=== PATIENT | male | born 1950 | race Two or more races ===

== ENCOUNTER → 2025-02-12 | Outpatient (CLI) | payer MEDICARE, SELFPAY ==
--- NOTE | 2025-02-12 12:30 | XR_ITS ---
EXAMINATION: PET/CT FUSION SKULL TO THIGH EXAM DATE AND TIME: February 12, 2025, 1324 hours, comparison CT pelvis October 16, 2021, nuclear medicine bone scan 10/30/2021 INDICATIONS: Diagnosis malignant neoplasm of prostate, post treatment, restaging CTDI:vol (mGy) 7.53 DLP: (mGycm) 688.04 PROCEDURE: 15.5 mCi FDG was administered intravenously To allow for distribution and uptake of radiotracer, the patient was allowed to rest quietly in a shielded room. Imaging was performed on an integrated 16-slice PET/CT scanner, with scanning from the skull base to the mid thigh. Serum blood glucose at the time of the injection was measured 135 mg/dL. CT scanning was performed without oral or intravenous contrast material. FINDINGS: Head and Neck: There is no mohamud hypermetabolism in the neck. The visualized portions of the brain are normal in appearance on CT. Chest: There is no mohamud hypermetabolism in the chest. There are no pulmonary nodules. Abdomen and Pelvis: There is no mohamud hypermetabolism in retroperitoneal or pelvic chains. The spleen is normal in size and FDG avidity. Musculoskeletal: Marrow uptake is within normal range. IMPRESSION: No chest abdomen or pelvic lymphadenopathy No pulmonary parenchymal nodules pleural or parenchymal disease Negative for hydronephrosis No hypermetabolic osseous metastatic disease, however given the nuclear medicine bone scan report October 30, 2021, consider repeat whole body bone scan
== END | disposition home or self-care (01) ==
LOC: CDIM 12:15
PROVIDERS: Referring Provider Physician Assistant; Visit Provider Physician Assistant
DX: C61 Malignant neoplasm of prostate (principal)
CPT/HCPCS: 78815; A9552